=== PATIENT | male | born 1990 | race Hispanic/Latino ===

== ENCOUNTER 2018-06-01 13:58 | Emergency (ER) | payer OTHER ==
[~2018-06-01] VITALS: Ht 177.8 cm; Wt 113.4 kg
[~2018-06-01 13:58] MED LIST: PRILOSEC OTC20 M1 PO; ZOFRAN ODT4 M1 SL
[2018-06-01 14:52] VITALS: BP 147/95
[2018-06-01] MEDS ORDERED: MEDROL4 M2 PO (16:34)
[2018-06-01] MEDS ORDERED: IBUPROFEN800 M1 PO (16:34)
[2018-06-01] MEDS ORDERED: CYCLOBENZAPRINE10 M1 PO (16:34)
--- NOTE | 2018-06-01 16:34 | ED GENERAL ADULT ---
History of Present Illness General Chief Complaint: Low Back Pain/Injury Stated Complaint: INJURY AT WORK BACK/NECK PAIN Source: patient Exam Limitations: no limitations Vital Signs & Intake/Output Vital Signs & Intake/Output Vital Signs Date Time Temp Pulse Resp B/P B/P Pulse O2 O2 Flow FiO2 Mean Ox Delivery Rate 06/01 1616 98 Room Air 06/01 1452 98.3 78 16 147/95 98 Room Air Allergies Coded Allergies: No Known Allergies (08/17/16) Reconcile Medications Cyclobenzaprine HCl 10 MG TABLET 1 TAB PO TID PRN PAIN Ibuprofen 800 MG TABLET 1 TAB PO TID PRN PAIN Methylprednisolone. (Medrol) 4 MG TAB.DS.PK 1 DP PO AD BACK PAIN 6 on day 1 then reduce by one tablet daily until gone Omeprazole Magnesium (Prilosec Otc) 20 MG TABLET.DR 1 TAB PO DAILY upset stomach Ondansetron (Zofran Odt) 4 MG TAB.RAPDIS 1 TAB SL TID PRN nausea Triage Note: 28 Y/O MALE C/O CENTER MID BACK PAIN X 2-3 DAYS. STATES HE DOES [employer]ICAL [employer]OR FOR WORK AND THINKS "I OVERDID IT". DENIES SPECIFIC INJURY OR TRAUMA. DENIES RADIATION OF PAIN. DENIES URINARY SYMPTOMS. PT STATES HE HAS NOT TAKEN ANY MEDICATION FOR PAIN TODAY. EVALD BY JAVON DESHPANDE IN TRIAGE Triage Nurses Notes Reviewed? yes Onset: Abrupt Duration: day(s): (1-2), constant, continues in ED, getting worse Timing: single episode today Injury Environment: work Severity: mild, moderate Severity Numbers: 7 No Modifying Factors: none HPI: 28-year-old male with no medical history of present for evaluation of low back pain. Patient reports pain started 1 or 2 days ago after doing heavy lifting at work. The pain is located on both sides the lower back and does not radiate. The pain is worse with movement. He denies any numbness or tingling direct trauma bowel or bladder dysfunction abdominal pain fever or IV drug use. He is not taking any medicine for his pain. He has no previous history of back pain. (Ilir Denise) Past History Travel History Traveled to [place] past 21 day No Medical History Any Pertinent Medical History? see below for history Neurological: NONE EENT: NONE Cardiovascular: NONE Respiratory: NONE Gastrointestinal: NONE Hepatic: NONE Renal: NONE Musculoskeletal: NONE Psychiatric: NONE Endocrine: NONE Blood Disorders: NONE Surgical History Surgical History: none Psychosocial History What is your primary language Somali Tobacco Use: Current Daily Use Daily Tobacco Use Amount/Type: =< 4 Cigarettes daily Family History Hx Contributory? No (Ilir Denise) Review of Systems Review of Systems Constitutional: Reports: no symptoms. EENTM: Reports: no symptoms. Respiratory: Reports: no symptoms. Cardiovascular: Reports: no symptoms. GI: Reports: no symptoms. Genitourinary: Reports: no symptoms. Musculoskeletal: Reports: see HPI, back pain, muscle pain, muscle stiffness. Skin: Reports: no symptoms. Neurological/Psychological: Reports: no symptoms. Hematologic/Endocrine: Reports: no symptoms. Immunologic/Allergic: Reports: no symptoms. All Other Systems: Reviewed and Negative (Ilir Denise) Physical Exam Physical Exam General Appearance: well developed/nourished, no apparent distress, alert, awake , obese Head: atraumatic, normal appearance Eyes: Bilateral: normal appearance, PERRL, EOMI. Ears, Nose, Throat: hearing grossly normal Neck: normal inspection, supple, full range of motion Respiratory: normal breath sounds, chest non-tender, no respiratory distress, lungs clear Cardiovascular: regular rate/rhythm, normal peripheral pulses Peripheral Pulses: 2+ radial (R), 2+ radial (L) Gastrointestinal: soft, non-tender Back: normal inspection, normal range of motion, no vertebral tenderness, LUMBAR PARASPINAL MUSCLES TENDER TO PALPATION BILATERALLY NO MIDLINE TENDERNESS NO STEP -OFFS OR DEFORMITIES NO BRUISING SWELLING OR ABRASIONS Extremities: normal inspection, normal range of motion, no edema, straight leg raised (NEGATIVE BILATERALLY) Neurologic/Psych: no motor/sensory deficits, awake, alert, oriented x 3, normal gait, normal mood/affect Reflexes: 2+: knee (R), knee (L). Skin: intact, normal color, warm/dry Core Measures ACS in differential dx? No CVA/TIA Diagnosis: No Sepsis Present: No Sepsis Focused Exam Completed? No (Ilir Denise) Progress Differential Diagnoses I considered the following diagnoses in my evaluation of the patient: [Low back strain, herniated disc, fracture, cauda equina, abscess] Plan of Care: Patient is here for evaluation of low back pain after doing heavy lifting at work. Patient is obese. He does have paraspinal tenderness on exam no bony point tenderness to suggest a fracture. He has no history of back pain. Patient is medicated here with Toradol prednisone and Flexeril and is feeling better. He was instructed to rest and avoid excessive heavy lifting or bending. Continue Flexeril ibuprofen as needed Medrol Dosepak for the full course. Follow-up with primary care doctor. Patient agrees the plan Initial ED EKG: none (Ilir Denise) Departure Departure Disposition: HOME OR SELF CARE Condition: Stable Clinical Impression Primary Impression: Low back strain Qualifiers: Encounter type: initial encounter Qualified Code: S39.012A - Strain of muscle, fascia and tendon of lower back, initial encounter Referrals: Solomon CARDONA,Jaxson Kline MD,Venu Dumont MD,Regis Estrada Patient Has No Primary Care Dr (PCP/Family) Additional Instructions: Rest, avoid heavy lifting bending or excessive physical activity. Ibuprofen 800 mg every 8 hours as needed for pain. Take Medrol dosepak as directed for the full course start this tomorrow. Cyclobenzaprine as a muscle relaxer that can be used every 8 hours as needed this may cause drowsiness. Follow-up with provided primary care doctor as soon as possible monitor your symptoms return if any concerns. Departure Forms: Customer Survey General Discharge Information Industrial Accident Report Prescriptions: Current Visit Scripts Cyclobenzaprine HCl 1 TAB PO TID PRN PAIN #30 TAB Methylprednisolone. (Medrol) 1 DP PO AD #1 DP 6 on day 1 then reduce by one tablet daily until gone Ibuprofen 1 TAB PO TID PRN PAIN #30 TAB (Ilir Denise) PA/CORPORATE PLANNER Co-Sign Statement Statement: ED Attending supervision documentation- [] I saw and evaluated the patient. I have also reviewed all the pertinent lab results and diagnostic results. I agree with the findings and the plan of care as documented in the PA's/CORPORATE PLANNER's documentation. [X] I have reviewed the ED Record and agree with the PA's/CORPORATE PLANNER's documentation. [] Additions or exceptions (if any) to the PAs/CORPORATE PLANNER's note and plan are summarized below: [] (Nuno Cantu DO) Critical Care Note Critical Care Note Critical Care Time: non-applicable (Ilir Denise)
== END 2018-06-01 16:57 ==
LOC: ERH 13:58
DX: S39.012A Strain of muscle, fascia and tendon of lower back, initial encounter (principal); X50.0XXA Overexertion from strenuous movement or load, initial encounter
CPT/HCPCS: 96372; J1885